=== PATIENT | female | born 1945 | race Caucasian/White ===

== ENCOUNTER → 2016-06-24 | Outpatient (CLI) | payer OTHER ==
--- NOTE | 2016-06-24 12:26 | MA ---
Screening Digital Mammogram With iCAD Analysis Clinical Indications: Routine screening. Her mother and paternal grandmother were diagnosed with [address] cancer in their 70s and a sister in her 60s. Technique: Standard cephalocaudal and mediolateral oblique projections were obtained. This examinatio n was processed by the iCAD computer aided detection system. Comparison: June 2015, May 2014, May 2013, March 2012, October 2010, July 2009, Decem 2007. Breast density: Type B; Scattered fibroglandular densities. Findings: CAD was reviewed. No spiculated masses, suspicious calcifications or other signs of malign rodriguez are identified. Well-circumscribed nodular area in the anterior left breast has been demonstrate d previously to represent a simple cyst. There has been no significant change in the appearance of e ither breast. Impression: Benign mammography, BI-RADS 2 Recommendation: Routine mammographic screening in one year as long as physical examination is negativ [facility] will send a result letter to the patient. Negative mammography should not preclude additional workup of a clinically suspicious finding. The patient's information is entered into a reminder system with a target due date for her next mammo gram.
== END ==
LOC: CIMAGING 08:55
DX: Z12.31 Encounter for screening mammogram for malignant neoplasm of breast (principal); Z80.3 Family history of malignant neoplasm of breast
CPT/HCPCS: G0202

== ENCOUNTER 2016-09-10 15:11 | Emergency (ER) | payer OTHER ==
--- NOTE | 2016-09-10 15:21 | UCPHY ---
H & P Patient Type: New HPI/ROS: HPI CHIEF COMPLAINT: ACCIDENTAL INSULIN OVERDOSE HISTORY OF PRESENT ILLNESS: This patient very pleasant 71-year-old female, significant past medical history for insulin-dependent diabetes, thyroid disease , presents to the urgent care as she accidentally took 25 extra units of NovoLog. This was at 2:38 p.m. she did take 10 tablets of glucose right after when she realized his stay, her blood sugar upon arrival to the urgent care is 184. She does tell me that at 2:45 a.m. it was 98. Patient just recheck her glucose at this time is now 198. Patient tells me she accidentally took 30 units of NovoLog after lunch. She is supposed to take 5 units. This extra 25 units. She is asymptomatic at this time. Does feel anxious. Past Medical History: Insulin-dependent diabetes, thyroid disease, mild obesity Past Surgical History: no recent surgical history Social History: Retired denies drug use alcohol tobacco products Family History: Noncontributory ROS REVIEW OF SYSTEMS: A comprehensive 10 point review of systems is otherwise negative aside from elements mentioned in the history of present illness. Exam Constitutional appears well nontoxic, triage nursing summary reviewed, vital signs reviewed, awake/alert. Eyes normal conjunctivae and sclera, EOMI, PERRLA. HENT normal inspection, atraumatic, moist mucus membranes, no epistaxis, neck supple/ no meningismus, no raccoon eyes. Respiratory clear to auscultation bilaterally, normal breath sounds, no respiratory distress, no wheezing. Cardiovascular rate normal, regular rhythm, no murmur, no edema, distal pulses normal. Gastrointestinal soft, non-tender, no rebound, no guarding, normal bowel sounds, no distension, no pulsatile mass. Genitourinary no CVA tenderness. Musculoskeletal no midline vertebral tenderness, full range of motion, no calf swelling, no tenderness of extremities, no meningismus, good pulses, neurovascularly intact. Skin pink, warm, & dry, no rash, skin atraumatic. Neurologic awake, alert and oriented x 3, AAOx3, moves all 4 extremities equally, motor intact, sensory intact, CN II-XII intact, normal cerebellar, normal vision, normal speech. Psychiatric normal mood/affect. Heme/Lymph/Immune no lymphadenopathy. Differential Diagnosis: Includes but is not limited to in a particular order insulin overdose accidental, electrolyte disturbance, dehydration Medical Decision Making: Plan for this patient IV establishment, q.1 hour Accu- Cheks, check creatinine level, Feed her at this time and then watch blood sugars. Re-evaluation: Blood sugars have been trended q.1 hour. Her sugars now going up to 113. I feel comfortable allowing her to go home. She does understand to eat a snack when she gets home. Check her blood sugar right before she goes to bed if she is feeling funny nauseous lightheadedness weakness dizziness sweaty she needs return emergency room. She understands this. Hold her long-acting insulin tonight. Source: Patient - Family History Significant Family History: No pertinent family hx Constitutional: Initial Vital Signs Temperature (C) 36.6 C 09/10/16 15:21 Heart Rate 85 09/10/16 15:21 Respiratory Rate 18 09/10/16 15:21 Blood Pressure 199/106 H 09/10/16 15:21 O2 Sat (%) 97 09/10/16 15:21 O2 Delivery Mode Nasal Cannula O2 (L/minute) 0.5 Allergies/Adverse Reactions: No Known Allergies Allergy (Unverified 09/10/16 15:15) Home Medications: Medication Instructions Recorded [id number] #3 Capsule 09/10/16 Atorvastatin Calcium 09/10/16 Escitalopram Oxalate 09/10/16 Estrogen,Anabelle/Me-Testosterone 09/10/16 Irbesartan 09/10/16 Jardiance 09/10/16 Levemir 09/10/16 Levothyroxine 09/10/16 Oxybutynin 09/10/16 Victoza 3-Alistair 09/10/16 metFORMIN SR 09/10/16 novoLOG 09/10/16 Medical Decision Making - Data Points Laboratory Results: Laboratory Results 09/10/16 15:38 09/10/16 15:38 09/10/16 09/10/16 09/10/16 19:27 18:20 17:19 WBC RBC Hgb Hct MCV MCH MCHC RDW Plt Count MPV Neut % (Auto) Lymph % (Auto) [place] % (Auto) Eos % (Auto) Baso % (Auto) Nucleat RBC Rel Count Absolute Neuts (auto) Absolute Lymphs (auto) Absolute Monos (auto) Absolute Eos (auto) Absolute Basos (auto) Absolute Nucleated RBC Immature Gran % Immature Gran # Sodium Potassium Chloride Carbon Dioxide Anion Gap BUN Creatinine Estimated GFR Glucose POC Glucose 113 mg/dL H mg/dL 94 mg/dL mg/dL 131 mg/dL H mg/dL (70-100) (70-100) (70-100) Calcium 09/10/16 09/10/16 09/10/16 16:30 15:38 15:38 WBC 9.11 10^3/uL 10^3/uL (3.80-9.50) RBC 4.93 10^6/uL 10^6/uL (4.18-5.33) Hgb 15.2 g/dL g/dL (12.6-16.3) Hct 46.0 % % (38.0-47.0) MCV 93.3 fL fL (81.5-99.8) MCH 30.8 pg pg (27.9-34.1) MCHC 33.0 g/dL g/dL (32.4-36.7) RDW 14.8 % % (11.5-15.2) Plt Count 287 10^3/uL 10^3/uL (150-400) MPV 10.8 fL fL (8.7-11.7) Neut % (Auto) 63.3 % % (39.3-74.2) Lymph % (Auto) 28.0 % % (15.0-45.0) [place] % (Auto) 4.9 % % (4.5-13.0) Eos % (Auto) 2.9 % % (0.6-7.6) Baso % (Auto) 0.5 % % (0.3-1.7) Nucleat RBC Rel Count 0.0 % % (0.0-0.2) Absolute Neuts (auto) 5.76 10^3/uL 10^3/uL (1.70-6.50) Absolute Lymphs (auto) 2.55 10^3/uL 10^3/uL (1.00-3.00) Absolute Monos (auto) 0.45 10^3/uL 10^3/uL (0.30-0.80) Absolute Eos (auto) 0.26 10^3/uL 10^3/uL (0.03-0.40) Absolute Basos (auto) 0.05 10^3/uL 10^3/uL (0.02-0.10) Absolute Nucleated RBC 0.00 10^3/uL 10^3/uL (0-0.01) Immature Gran % 0.4 % % (0.0-1.1) Immature Gran # 0.04 10^3/uL 10^3/uL (0.00-0.10) Sodium 141 mEq/L mEq/L (134-144) Potassium 3.9 mEq/L mEq/L (3.5-5.2) Chloride 102 mEq/L mEq/L (97-110) Carbon Dioxide 22 mEq/l mEq/l (22-31) Anion Gap 17 mEq/L H mEq/L (8-16) BUN 15 mg/dL mg/dL (7-23) Creatinine 0.8 mg/dL mg/dL (0.6-1.0) Estimated GFR > 60 Glucose 208 mg/dL H mg/dL (70-100) POC Glucose 184 mg/dL H mg/dL (70-100) Calcium 10.1 mg/dL mg/dL (8.5-10.4) Medications Given: Discontinued Medications Sodium Chloride (Ns) 1,000 mls @ 0 mls/hr IV ONCE ONE PRN Reason: Wide Open Stop: 09/10/16 15:26 Last Admin: 09/10/16 15:54 Dose: 1,000 mls Point of Care Test Results: 09/10/16 09/10/16 09/10/16 16:30 17:19 18:20 POC Glucose 184 H 131 H 94 09/10/16 19:27 POC Glucose 113 H Departure - Departure Disposition: Home, Routine, Self-Care Clinical Impression: Poisoning by insulin and oral hypoglycemic [antidiabetic] drugs, accidental ( unintentional), initial encounter Condition: Good Instructions: Insulin Regular (By injection), Type 1 Diabetes in Adults (ED), Hypoglycemia in a Person with Diabetes (ED) Additional Instructions: 1. Eat a snack knee at home. Check blood sugar right before bed. 2. if you feel lightheaded, dizzy, sweaty you do not feel well check her blood sugar return emergency room. 3. hold her long-acting insulin this evening. Referrals: NONE *PRIMARY CARE P,. [Primary Care Provider] - As per Instructions - PQRS PQRS Measurement: n/a
[2016-09-10] MEDS ORDERED: NS 1,000 ML IV ONE (15:25)
[2016-09-10 15:46] LABS: % IMMATURE GRANULYOCYTES 0.4 % (0.0-1.1); ABSOLUTE IMMATURE GRANULOCYTES 0.04 10^3/uL (0.00-0.10); ADD DIFF? NO; ADD MORPH? NO; ADD SCAN? NO; ATYPICAL LYMPHOCYTE FLAG 10 (0-99); FRAGMENT RBC FLAG 0 (0-99); HEMOGLOBIN 15.2 g/dL (12.6-16.3); LEFT SHIFT FLG 0 (0-99); LIPEMIA HEMOLYSIS FLAG 80 (0-99); MEAN CELL HEMOGLOBIN 30.8 pg (27.9-34.1); MEAN CELL VOLUME 93.3 fL (81.5-99.8); MEAN PLATELET VOLUME 10.8 fL (8.7-11.7); PLATELET CLUMPS FLAG 0 (0-99); PLATELET COUNT 287 10^3/uL (150-400); RED BLOOD CELL COUNT 4.93 10^6/uL (4.18-5.33); RED CELL DISTRIBUTION WIDTH 14.8 % (11.5-15.2)
[2016-09-10 15:59] LABS: ANION GAP 17 mEq/L (8-16); CALCIUM 10.1 mg/dL (8.5-10.4); CARBON DIOXIDE 22 mEq/l (22-31); CHLORIDE 102 mEq/L (97-110); CREATININE 0.8 mg/dL (0.6-1.0); GLOMERULAR FILTRATION RATE > 60; GLUCOSE 208 mg/dL (70-100); POTASSIUM 3.9 mEq/L (3.5-5.2); SODIUM 141 mEq/L (134-144)
[2016-09-10 17:03] VITALS: RESP 16; TEMP 97.9
[2016-09-10 19:16] VITALS: O2SAT 92
[2016-09-10 20:07] VITALS: BP 144/90; PULSE 96
== END 2016-09-10 20:07 | disposition home or self-care (01) ==
LOC: CED 15:11
DX: T38.3X1A Poisoning by insulin and oral hypoglycemic [antidiabetic] drugs, accidental (unintentional), initial encounter (principal); E10.9 Type 1 diabetes mellitus without complications; E07.9 Disorder of thyroid, unspecified
CPT/HCPCS: 96360; G0463; 80048-PO; 82947-QW; 85025-PO; 99204-PO

== ENCOUNTER → 2017-05-14 | Outpatient (CLI) | payer OTHER | LOC: BRMIMAGING 11:00 | PROVIDERS: ATTEND Physician Assistant | DX: Z13.820 Encounter for screening for osteoporosis (principal); Z78.0 Asymptomatic menopausal state ==

== ENCOUNTER → 2017-08-12 | Outpatient (CLI) | payer OTHER | LOC: BRMIMAGING 14:25 | PROVIDERS: ATTEND Physician Assistant | DX: Z12.31 Encounter for screening mammogram for malignant neoplasm of breast (principal) ==

== ENCOUNTER → 2017-12-28 | Outpatient (CLI) | payer OTHER | LOC: BHLMT 10:00 | PROVIDERS: ATTEND Internal Medicine | DX: R01.1 Cardiac murmur, unspecified (principal) | CPT/HCPCS: 93306-PO ==

== ENCOUNTER → 2018-02-11 | Outpatient (CLI) | payer OTHER | LOC: BRMIMAGING 15:07 | PROVIDERS: ATTEND Internal Medicine | DX: M79.671 Pain in right foot (principal) | CPT/HCPCS: 73630-PO ==

== ENCOUNTER → 2018-11-25 | Outpatient (CLI) | payer OTHER | LOC: BRMIMAGING 13:35 ==